=== PATIENT | male | born 1970 | race Caucasian/White ===

== ENCOUNTER 2019-06-29 16:11 | Emergency (ER) | payer MEDICARE, MEDICAID, SELFPAY ==
[2019-06-29 16:13] VITALS: BP 157/114; PULSE 85; RESP 18; TEMP 36.6; O2SAT 98; BMI 24.6
--- NOTE | 2019-06-29 16:17 | ED.RN ---
pt admits to drinking prior to arrival
--- NOTE | 2019-06-29 16:48 | RAD_ITS ---
STUDY: X-RAY - LUMBAR SPINE REASON FOR EXAM: Male, 48 years old. FELL, PAIN TECHNIQUE: 3 view(s) of the lumbar spine were obtained. COMPARISON: None FINDINGS: Normal lumbar lordosis. There is no substantial scoliosis. There is a normal alignment of the vertebrae. There is multilevel endplate spondylosis of the lumbar vertebrae. Normal disc space heights. There is no demonstrated fracture. Mild atherosclerosis. RAD/Lumbar Spine 2 or 3 Views IMPRESSION: No compression fracture. Electronically Signed: Kadeem Ordoñez MD (Brooks) at 17:10 EST , Service support ,
--- NOTE | 2019-06-29 16:48 | RAD_ITS ---
STUDY: X-RAY - PELVIS REASON FOR EXAM: Male, 48 years old. FELL, PAIN TECHNIQUE: One view of the pelvis was obtained. COMPARISON: None. FINDINGS: There is a non-specific bowel gas pattern. Normal visualized soft tissue structures. Normal bilateral iliac wings, sacroiliac joints and visualized sacrum. Normal visualized bilateral superior and inferior pubic rami. Normal pubic symphysis. Normal ischial tuberosities. Normal visualized right femoral head. Normal right acetabulum. Normal right hip joint. Normal visualized left femoral head. Normal left acetabulum. Normal left hip joint. RAD/Pelvis 1 or 2 Views IMPRESSION: No pelvic ring fracture. Electronically Signed: Kadeem Ordoñez MD ([place]) at 17:10 EST , Service support ,
--- NOTE | 2019-06-29 16:58 | ED.DCSUM_ITS ---
- ER Visit Summary Date of Service: 06/29/19 Chief Complaint: Back pain History of Present Illness: The patient is a 48 M with back pain that started around 2 or 4 fucking AM man. He said he was milking a cow when he got crushed between a rail and a 1500 pound fucking heifer. He says he went to an outside emergency department and that they did not image his back. He says his back is broken. He apparently walked from the emergency department, about a mile and a half to his friend's house to get a ride to our emergency department. He says that I do not want no fucking pain meds, man, I just need help because my back is broken. History is extremely limited as he continues to curse at me and ask for coffee. He seems to have pain all over his lower back or possibly his pelvis. He is not having GI or abdominal symptoms. Not having urinary symptoms. Not having weakness or numbness. Not having bowel or bladder issues. No fever or recent illness. No history of back surgery, but he did say that he fell 15 feet a month and a half ago. Physical Examination: Afebrile and vital signs unremarkable except for blood pressure 157/114. Patient is mildly agitated. Head and neck atraumatic. Lumbar spine diffusely tender to palpation with light touch. Inspection is normal. Abdomen soft and nontender. Heart regular. Lungs clear. Pelvis diffusely tender to palpation. Legs show good range of motion. Good strength and sensation. Test Results: X-rays of his lumbar spine and pelvis were obtained. Emergency Department Course and Treatment: Patient declined pain medicine. X- rays were ordered. While awaiting x-ray results, the patient walked out of his room and was laying down outside. He was brought back to his room by security. X-ray showed nothing acute. It is likely myofascial pain. Patient declined pain medicine. He will be discharged to follow-up with primary care. Treatment Plan: As above Disposition: Discharge Impression: 1. Low back pain This note was generated with [employer] dictation software. It may contain incorrect words, spelling, and punctuation that were not noted in review of the chart prior to signing
--- NOTE | 2019-06-29 17:11 | ED.RN ---
pt returned from imaging. with 5 minutes of return from radiology this nurse updated pt that results take about 45 minutes. pt ambulating in room. states i aint got time for this. there aint a God dame thing to do for it. it ant fucking fixable. i eliza a get out fo here. left pill bottles in room attempted to assist pt with belongings states i dont want any of that vera muñoz registration attemted to register pt. he refused to return to room. handed registration wallet and continued to walk out. asked pt if he wanted to wait for his wallet states i dont need any of that vera muñoz and walked out of unit and building. wallet and meds given to ceferino
--- NOTE | 2019-06-29 17:19 | ED.RN ---
pt found half on ramp, half on sidewalk. assisted back in er via wc. meds and wallet returned to pt. charge nurse talking with pt at this time.
--- NOTE | 2019-06-29 17:26 | ED.DEP ---
ED Disposition - Plan for ED Patient: Instructions: BACK PAIN (Acute or Chronic) Referrals: Annie Gandhi [NON-STAFF] -
--- NOTE | 2019-06-29 17:38 | ED.RN ---
dr jasso in to talk with pt regarding normal x-rays. pt becomes angry. runs out of room looking for physician. this rn, nighat and osman parra escort pt back to room. pt then states i can't walk. pt swearing and yelling. states the other hospital stated he had a disc problem. this rn reminds pt that he stated they said nothing. pt given dc instructions. refuses to take medications with him. pt swearing. admits to drinking. pt out of department with osman parra
== END 2019-06-29 17:53 | disposition home or self-care (01) ==
PROVIDERS: Emergency Provider Emergency Medicine
DX: M54.5 Low back pain (principal); W55.29XA Other contact with cow, initial encounter; Y93.9 Activity, unspecified; Y92.9 Unspecified place or not applicable; Z72.0 Tobacco use
CPT/HCPCS: 72100; 72170; 99282

== ENCOUNTER 2023-03-03 10:29 | Emergency (ER) | payer MEDICARE, MEDICAID, SELFPAY ==
[2023-03-03 10:30] VITALS: BP 126/81; PULSE 86; RESP 14; TEMP 35.9; O2SAT 99; BMI 24.9
== END 2023-03-03 10:50 | disposition left against medical advice (07) ==
LOC: ED 10:51
DX: R10.30 Lower abdominal pain, unspecified (principal)

== ENCOUNTER 2024-08-08 14:04 | Emergency (ER) | payer MEDICARE, MEDICAID, SELFPAY ==
[2024-08-08 14:05] VITALS: BP 150/10; PULSE 95; RESP 18; TEMP 36.6; O2SAT 98
[2024-08-08 14:23] VITALS: BMI 25.9
[2024-08-08 14:38] VITALS: PULSE 89; RESP 16; O2SAT 97
[2024-08-08 15:01] LABS: Absolute Lymphocyte Count 2.28 X10^3/uL (0.83-4.51); Absolute Neutrophil Count 5.2 X10^3/uL (2.0-7.7); Basophil# 0.09 X10^3/uL; Eosinophil# 0.27 X10^3/uL; Hematocrit 45.1 % (40-54); Hemoglobin 15.7 g/dL (13.0-16.5); Lymphocyte # 2.28 X10^3/ul (0.83-4.51); Lymphocyte % 25.4 % (19-41); Mean Corp Hgb Conc 34.8 g/dL (32-36); Mean Corpuscular Hgb 33.1 pg (27.0-32.0); Mean Corpuscular Volume 94.9 fL (80-94); Mean Platelet Vol. 10.4 fl (6.2-12.0); Monocyte# 1.05 X10^3/uL; Monocyte% 11.7 % (0-10); NRBC Flagged by Analyzer 0 % (0-5); Neutrophil # 5.23 X10^3/uL (2.7-7.7); Neutrophil % 58.3 % (47-70); Platelet Count 299 K/mm3 (150-450); RBC Distribution Width CV 12.3 % (11.6-14.6); RBC Distribution Width SD 43.3 fl (35.1-43.9); Red Blood Count 4.75 M/mm3 (4.6-6.2)
--- NOTE | 2024-08-08 15:09 | CT_ITS ---
EXAM: ABDOMEN/PELVIS WITHOUT CONT CLINICAL HISTORY: Right flank pain. COMPARISON: None. TECHNIQUE: Helical CT images of the abdomen and pelvis were performed utilizing routine protocol without intravenous contrast material. Multiplanar reformations were obtained. Dose reduction techniques were used including intermediate exposure control (AEC),iterative reconstruction technique, and/or mA and/or KV dose adjustments based on patient's size. FINDINGS: The lung bases are clear. No obvious acute abnormality of the liver, spleen, pancreas, or adrenal glands. The gallbladder contains dependent increased density which may represent stones, sludge versus artifact. No acute obstructive urinary collecting system calculus. No urinary bladder wall thickening. No hydronephrosis. Cortical thinning noted at the lower pole of the left kidney. No acute bowel obstruction. No pneumoperitoneum. No CT evidence of acute colonic diverticulitis. No CT evidence of acute appendicitis. Mild atherosclerosis. No evidence of aortic aneurysm. No lymphadenopathy. No significant free fluid in the abdomen and pelvis. No CT evidence of acute osseous abnormality. CT/Abdomen/Pelvis without Cont IMPRESSION: The gallbladder contains dependent increased density which may be related to ar tifact, stones or sludge. No acute inflammatory process is identified in the abdomen and pelvis. Reading Location: [id number]
--- NOTE | 2024-08-08 15:09 | EX.ED.DYSGE1 ---
HPI History of Present Illness Chief Complaint: Abd Pain Informant: patient Narrative Narrative: Nontraumatic right flank pain 4 days ago awaken him from sleep. Pain radiates to his side. Pain hurts with movement or touch. Subjective fever and chills. No urinary symptoms. Occasional dry heaves. No bowel movement for 2 days. Umbilical hernia repair in the past. Used Aleve last dose this morning. Also using gummy CBD stone with gas station. No history of kidney stones. Prior similar symptoms: No PFSH PFSH Medical History COPD (chronic obstructive pulmonary disease) Head injury PTSD (post-traumatic stress disorder) Home Medications ?Medication ?Instructions ?Recorded ?Last Taken ?Type hydrocodone-acetaminophen 5-325mg 1 tab PO Q6H PRN PRN Pain 3 days 08/08/24 Unknown Rx 5mg-325mg #12 TABLETS prednisone 20 mg tablet 60 mg (3 x 20 mg) PO DAILY #12 08/08/24 Unknown Rx TABLETS Allergy/AdvReac Type Severity Reaction Status Date / Time No Known Allergies Allergy Verified 08/08/24 14:07 Surgical History History of surgery on lower extremity Social History Smoking Status: Current every day smoker tobacco type: cigarettes ROS ROS ED Constitutional Constitutional ED: Reports chills and fever(s); Denies sweats ENT ENT ED: Denies sore throat Cardiovascular Cardiovascular: Denies chest pain, leg edema, palpitations or racing heartbeat Respiratory/Chest Respiratory/Chest: Denies cough, dyspnea or dyspnea on exertion Gastrointestinal Gastrointestinal: Denies abdominal pain, diarrhea, nausea or vomiting Genitourinary Genitourinary ED: Denies dysuria, hematuria or urinary frequency Musculoskeletal Musculoskeletal: Reports back pain; Denies extremity pain or neck pain Integumentary Denies rash or wounds Neurologic Neurologic: Denies headache(s), paresthesias or weakness EXAM Physical Exam Const Vital Signs: 08/08/24 14:05 08/08/24 14:38 08/08/24 16:04 Temperature 97.8 F Temperature Source Temporal Pulse Rate 95 89 78 Respiratory Rate 18 16 16 Blood Pressure 150/10 H 120/78 Blood Pressure Mean 56 92 Pulse Ox 98 97 98 Oxygen Delivery Method Room Air Room Air Room Air 08/08/24 18:00 Temperature Temperature Source Pulse Rate 77 Respiratory Rate 16 Blood Pressure 109/69 Blood Pressure Mean 82 Pulse Ox 96 Oxygen Delivery Method Room Air Positive well nourished and well developed General Appearance ED: well developed and NAD HEENT Reports moist mucous membranes normocephalic and atraumatic Eyes General Eye ED: Yes normal appearance of both eyes Neck full ROM Chest Wall Chest: Negative for tenderness Resp normal respiratory effort and normal air movement Effort and Inspection: symmetric chest movement; Negative for respiratory distress Cardio regular rate, regular rhythm and no murmurs Peripheral Pulses: pulses 2+ throughout GI normal to inspection, nondistended, normoactive bowel sounds and non-tender Palpation: Negative for guarding or rebound tenderness present Back/Spine Back/Spine Narrative: Tenderness to touch skin right CVA around her right mid abdomen there is no rash noted. Extremity normal to inspection General Extremety ED: Negative for edema or tenderness General Extremity: Negative for edema Neuro oriented x3 and no sensory deficits noted Sensorium / Orientation: awake and alert Skin no rashes or lesions noted and no wounds MDM MDM MDM Narrative Medical decision making narrative: Interventions / MDM: Differential diagnosis: Right flank pain unknown etiology, shingles Diagnosis considered but do not suspect: Cholecystitis, appendicitis, colitis however CT negative. My EKG interpretation: N/A Imaging independently reviewed and interpreted by myself: CT abdomen pelvis: No obstructive uropathy. Gallbladder stone versus sludge versus artifact. Normal appendix. No signs of colitis. Right upper quadrant ultrasound: Normal gallbladder normal right kidney. External documents reviewed: N/A Test considered but not ordered:N/A ED course: Nontraumatic right flank pain rating to the side. Skin is tender palpation over no current rash. He declines any additional pain medicine at this time. Nursing protocol with labs and urine. Flank CT ordered for further evaluation. 1709: Labs white count 9.0 hemoglobin 15.7 platelets 299. Creatinine 0.90. Liver enzymes normal. Urine with only 25 leukocytes 2+ bacteria. Urine culture sent. Denies any urinary symptoms. Flank CT negative for any obstructive uropathy, per radiology questionable gallstone versus sludge versus artifact. Minimal tenderness right upper quadrant however most plain in the flank regions no current rash. Patient concerned of symptoms therefore will obtain ultrasound right upper quadrant for further evaluation. 1930: Ultrasound negative. Patient with pain with palpation there is no current rash however discussed monitor for any vesicular rash that could be shingles. Discussed starting him on steroids to try to help with symptoms. Also agreed with short prescription for [place] to use as needed. He states does have a PCP. He will follow-up with his PCP for further evaluation. Re-evaluation: stable Disposition discussed with patient/family/significant other: Patient Case discussed with consulting clinician: N/A This note was generated with [employer] dictation software. It may contain incorrect words, spelling, and punctuation that were not noted in checking the note before signing. Lab Data Attestation: I reviewed the patient's lab results. Labs: Laboratory Results - last 24 hr 08/08/24 08/08/24 14:30 16:02 WBC 9.0 RBC 4.75 Hgb 15.7 Hct 45.1 MCV 94.9 H MCH 33.1 H MCHC 34.8 RDW Std Deviation 43.3 RDW Coeff of Paulino 12.3 Plt Count 299 MPV 10.4 Immature Gran % (Auto) 0.600 Neut % (Auto) 58.3 Lymph % (Auto) 25.4 Phelps % (Auto) 11.7 H Eos % (Auto) 3.0 Baso % (Auto) 1.0 Absolute Neuts (auto) 5.2 Absolute Lymphs (auto) 2.28 Nucleated RBC % 0 Sodium 133 L Potassium 3.8 Chloride 98 Carbon Dioxide 26.0 Anion Gap 9 BUN 8 Creatinine 0.98 Estim Creat Clear Calc 86.17 Est GFR (MDRD) Af Amer 103 Est GFR (MDRD) Non-Af 85 BUN/Creatinine Ratio 8.2 L Glucose 92 Calcium 9.3 Total Bilirubin 2.10 H AST 25 ALT 36 Alkaline Phosphatase 117 Total Protein 7.9 Albumin 3.9 Globulin 4.0 Albumin/Globulin Ratio 1.0 Urine Color Yellow Urine Clarity Clear Urine pH 6.0 Ur Specific [place] 1.015 Urine Protein 15 H Urine Glucose (UA) Normal Urine Ketones Negative Urine Occult Blood Negative Urine Nitrite Negative Urine Bilirubin Negative Urine Urobilinogen Normal Ur Leukocyte Esterase 25 H Urine RBC 0 SEEN Urine WBC 0 SEEN Ur Squamous Epith Cells 0-5 SEEN Amorphous Sediment 2+ Urine Bacteria 2+ Urine Mucus 0 SEEN Radiography Diagnostic Testing: Clinical Impression(s) from Imaging Studies Abdomen/Pelvis CT 08/08/24 15:09 IMPRESSION: The gallbladder contains dependent increased density which may be related to artifact, stones or sludge. No acute inflammatory process is identified in the abdomen and pelvis. Reading Location: [facility] Gallbladder Ultrasound 08/08/24 17:10 IMPRESSION: NORMAL RIGHT UPPER QUADRANT ULTRASOUND. Reading Location: [facility] Discharge Plan Triage Chief Complaint: Abd Pain ED Provider: Tiago Sena Dx/Rx/DC Orders Clinical Impression: Acute right flank pain, Back pain Instructions: ED Flank Pain, Uncertain Cause Prescriptions: New hydrocodone-acetaminophen 5-325 mg tablet 1 tab PO Q6H PRN PRN (Reason: Pain) 3 Days Qty: 12 0RF prednisone 20 mg tablet 60 mg PO DAILY Qty: 12 0RF Primary Care Provider: Care Physician,No Primary Referrals: Care Physician,No Primary [Primary Care Provider] - Activity Restrictions/Additional Instructions: CT scan abdomen pelvis negative. There is questionable gallbladder stone versus sludge versus artifact. However ultrasound of your gallbladder normal, normal kidneys. Normal colon. Normal appendix. urine culture sent, you will be contacted if culture is positive that requires treatment with antibiotics. Monitor for any vesicular rash that could be shingles. Take steroids as prescribed. Hydrocodone as needed. Follow-up with your doctor. Print Language: Nigerian Disposition Disposition: Home, Self Care Discharge Date/Time: 08/08/24 19:54
[2024-08-08 15:10] LABS: AST(SGOT) 25 U/L (15-37); Alanine Aminotransfer ALT/SGPT 36 U/L (16-61); Albumin, Serum 3.9 g/dL (3.2-5.0); Alkaline Phosphatase 117 U/L (45-117); Anion Gap 9 (5-15); BUN 8 mg/dL (7-18); BUN/Creat Ratio 8.2 RATIO (10-20); Calcium,Total 9.3 mg/dL (8.5-10.1); Chloride 98 mmol/L (98-107); Creatinine, Serum 0.98 mg/dL (0.70-1.30); EST Glomerular Filtration Rate 85 mL/min (>60); Est Glom Filt Rate - Afr Amer 103 mL/min (>60); Estimated Creatinine Clearance 86.17 ml/min; Glucose 92 mg/dL (74-106); Potassium 3.8 mmol/L (3.5-5.1); Protein, Total 7.9 g/dL (6.4-8.2); Sodium Level 133 mmol/L (136-145)
[2024-08-08 16:04] VITALS: BP 120/78; PULSE 78; RESP 16; O2SAT 98
[2024-08-08 16:07] LABS: Mucous, Urine 0 SEEN /hpf (<or=2+); White Blood Cells 0 SEEN /hpf (0-5)
[2024-08-08 16:08] LABS: Color, Urine Yellow (Yellow); Glucose, Dipstick Normal (Normal); Ketone-Dipstick Negative (Negative); Leukocyte Esterase-Dipstick 25 /ul (Negative); Nitrite-Dipstick Negative (Negative); Occult Blood-Urine Negative /ul (Negative); Protein-Dipstick 15 mg/dl (Negative); Specific Gravity, Urine 1.015 (1.002-1.030); Urine Bilirubin Dipstick Negative (Negative); Urine Clarity Clear (Clear); Urine Urobilinogen Normal (Normal)
[2024-08-08 16:15] LABS: Amorphous Sediment 2+; Bacteria 2+ /hpf (None Seen); Red Blood Cells-Urine 0 SEEN /hpf (0-5); Squamous Epithelial Cells - UA 0-5 SEEN /hpf (0-5)
--- NOTE | 2024-08-08 17:10 | US_ITS ---
PROCEDURE: GALLBLADDER REASON FOR EXAM: 54-year-old female, abdominal pain. COMPARISON: Same day CT abdomen pelvis. FINDINGS: Liver: Normal in size and diffusely echogenic, suggesting fatty infiltration. Gallbladder: No stones, sludge, wall thickening or tenderness. Common bile duct: Normal measuring 3.6 mm. Pancreas: Obscured by bowel gas. Visualized portions of the right kidney are unremarkable. No right upper quadrant ascites. US/Gallbladder IMPRESSION: NORMAL RIGHT UPPER QUADRANT ULTRASOUND. Reading Location: [id number]
[2024-08-08 18:00] VITALS: BP 109/69; PULSE 77; RESP 16; O2SAT 96
[2024-08-08] MEDS: Acetaminophen 500 MG Tablet 1000 MG PO (18:55)
[2024-08-08] MEDS: HYDROcodone Bitartrate/Apap 5/325 Tablet PO (19:50)
[2024-08-08] MEDS: predniSONE 20 MG Tablet 60 MG PO (19:50)
== END 2024-08-08 19:54 | disposition home or self-care (01) ==
PROVIDERS: Emergency Provider Emergency Medicine; Visit Provider Emergency Medicine
DX: R10.811 Right upper quadrant abdominal tenderness (principal); J44.9 Chronic obstructive pulmonary disease, unspecified; M54.9 Dorsalgia, unspecified; F17.210 Nicotine dependence, cigarettes, uncomplicated
CPT/HCPCS: 74176; 76705; 80053; 81001; 85025; 87086; 99283